=== PATIENT | female | born 1990 | race Caucasian/White ===

== ENCOUNTER → 2018-09-10 | Emergency (ER) | payer OTHER | LOC: M.CANCEL 16:33 → M.ERS 16:33 | DX: Z53.21 Procedure and treatment not carried out due to patient leaving prior to being seen by health care provider (principal) ==

== ENCOUNTER 2020-10-12 07:11 | Emergency (ER) | payer BC ==
[~2020-10-12] VITALS: Ht 175.3 cm; Wt 99.8 kg
[2020-10-12 07:23] VITALS: BP 137/68
[2020-10-12] MEDS ORDERED: PROAIR HFA8.5 GM INH (07:26)
[2020-10-12] MEDS ORDERED: ZOLOFT50 M1 PO (07:26)
[2020-10-12] MEDS ORDERED: WELLBUTRIN 75 M75 M1 PO (07:26)
[2020-10-12] MEDS ORDERED: ALPRAZOLAM XR3 MG PO (07:26)
[2020-10-12] MEDS ORDERED: HYDROCODON-ACE1 EAC7 PO (08:17)
== END 2020-10-12 08:29 | disposition home or self-care (01) ==
LOC: M.ERS 07:11
DX: S86.811A Strain of other muscle(s) and tendon(s) at lower leg level, right leg, initial encounter (principal); Z88.0 Allergy status to penicillin; W01.0XXA Fall on same level from slipping, tripping and stumbling without subsequent striking against object, initial encounter; Y93.89 Activity, other specified; Y92.89 Other specified places as the place of occurrence of the external cause; Y99.8 Other external cause status

== ENCOUNTER 2021-05-07 13:40 | Emergency (ER) | payer BC ==
[~2021-05-07] VITALS: Ht 175.3 cm; Wt 109.8 kg
[~2021-05-07 13:40] MED LIST: ALPRAZOLAM XR3 MG PO; HYDROCODON-ACE1 EAC7 PO; PROAIR HFA8.5 GM INH; WELLBUTRIN 75 M75 M1 PO; ZOLOFT50 M1 PO
[2021-05-07] MEDS ORDERED: NEURONTIN100 MG PO (14:10)
[2021-05-07 14:13] LABS: ABSOLUTE BASOPHILS 0.2 thou/uL (0.0-0.2); ABSOLUTE EOSINOPHILS 0.2 thou/uL (0.0-0.7); ABSOLUTE LYMPHOCYTES 2.2 thou/uL (0.8-5.3); ABSOLUTE MONOCYTES 0.5 thou/uL (0.0-1.2); ABSOLUTE NEUTROPHILS 9.1 thou/uL (1.6-8.1); BASOPHILS 1.3 %; EOSINOPHILS 1.4 %; HEMATOCRIT 37.5 % (37.0-47.0); HEMOGLOBIN 12.4 gm/dL (12.0-15.0); LYMPHOCYTES 18.1 %; MCH 28.5 pg (26.0-34.0); MCHC 32.9 g/dL (28.0-37.0); MCV 86.5 fL (80.0-100.0); MONOCYTES 4.4 %; MPV 10.2 fl. (7.2-11.1); NUCLEATED RBCS 0 /100WBC; PLATELET COUNT* 193 thou/uL (150-400); POLYS 74.8 %; RBC 4.34 mil/uL (4.20-5.00); RDW-CV 17.4 % (10.5-14.5); WBC 12.1 thou/uL (4.0-11.0)
[2021-05-07 14:18] LABS: CALCIUM 8.7 mg/dL (8.5-10.1); CREATININE 0.6 mg/dL (0.6-1.3); POTASSIUM 3.2 mmol/L (3.5-5.1)
[2021-05-07 14:22] LABS: ALBUMIN 3.2 g/dL (3.4-5.0); TOTAL BILIRUBIN 0.3 mg/dL (<0.1-1.0); TOTAL PROTEIN 6.8 g/dL (6.4-8.2)
[2021-05-07 14:46] VITALS: BP 130/70
== END 2021-05-07 14:46 | disposition home or self-care (01) ==
LOC: M.ERS 13:40
PROVIDERS: Family Medicine
DX: F10.920 Alcohol use, unspecified with intoxication, uncomplicated (principal); R42 Dizziness and giddiness; Z98.51 Tubal ligation status; Z79.899 Other long term (current) drug therapy; Z88.0 Allergy status to penicillin; W19.XXXA Unspecified fall, initial encounter; Y93.89 Activity, other specified; Y92.89 Other specified places as the place of occurrence of the external cause; Y99.8 Other external cause status; Y90.6 Blood alcohol level of 120-199 mg/100 ml

== ENCOUNTER 2021-06-23 01:55 | Emergency (ER) | payer BC ==
[~2021-06-23] VITALS: Ht 167.6 cm; Wt 113.4 kg
[~2021-06-23 01:55] MED LIST changes: +NEURONTIN100 MG PO
[2021-06-23 02:23] LABS: ABSOLUTE BASOPHILS 0.1 thou/uL (0.0-0.2); ABSOLUTE EOSINOPHILS 0.1 thou/uL (0.0-0.7); ABSOLUTE LYMPHOCYTES 2.2 thou/uL (0.8-5.3); ABSOLUTE MONOCYTES 0.6 thou/uL (0.0-1.2); BASOPHILS 0.7 %; EOSINOPHILS 1.2 %; HEMATOCRIT 38.2 % (37.0-47.0); HEMOGLOBIN 12.7 gm/dL (12.0-15.0); MCH 29.5 pg (26.0-34.0); MCHC 33.2 g/dL (28.0-37.0); MCV 88.9 fL (80.0-100.0); MONOCYTES 5.2 %; MPV 8.8 fl. (7.2-11.1); NUCLEATED RBCS 0 /100WBC; PLATELET COUNT* 196 thou/uL (150-400); POLYS 72.9 %; RDW-CV 21.8 % (10.5-14.5)
[2021-06-23 02:46] LABS: CALCIUM 8.8 mg/dL (8.5-10.1); CREATININE 0.6 mg/dL (0.6-1.3); POTASSIUM 3.1 mmol/L (3.5-5.1)
[2021-06-23 02:50] LABS: ALBUMIN 3.3 g/dL (3.4-5.0); TOTAL BILIRUBIN 0.4 mg/dL (<0.1-1.0); TOTAL PROTEIN 7.2 g/dL (6.4-8.2)
== END 2021-06-23 02:34 | disposition left against medical advice (07) ==
LOC: M.ERS 01:55
PROVIDERS: Personal Emergency Response Attendant
DX: F10.129 Alcohol abuse with intoxication, unspecified (principal); F45.8 Other somatoform disorders; Z79.899 Other long term (current) drug therapy; Z88.0 Allergy status to penicillin; Y90.2 Blood alcohol level of 40-59 mg/100 ml